=== PATIENT | female | born 1925 | race Caucasian/White ===

== ENCOUNTER 2016-12-30 14:13 | Inpatient (IN) | payer OTHER ==
[2016-12-30 14:46] LABS: BILIRUBIN,URINE Negative (NEGATIVE); KETONES,URINE Negative (NEGATIVE); LEUKOCYTE ESTERASE ,URINE Trace (NEGATIVE); NITRITE,URINE Negative (NEGATIVE); PROTEIN,URINE Negative (NEGATIVE); URINE, BLOOD Trace-intact (NEGATIVE)
[2016-12-30 14:55] LABS: BASOPHILS % (AUTO) 0.4 % (0.0-3.0); EOSINOPHILS % (AUTO) 0.4 % (0.0-7.0); HEMATOCRIT 36.5 % (37.0-47.0); HEMOGLOBIN 12.1 g/dl (12.0-16.0); IMMATURE GRANULOCYTE % (AUTO) 0.4 % (0.0-5.0); LYMPHOCYTES # (AUTO) 1.2 K/uL (0.60-3.4); LYMPHOCYTES % (AUTO) 14.6 (10.0-50.0); MEAN CORPUSCULAR HEMOGLOBIN 31.5 pg (27.0-31.0); MEAN CORPUSCULAR HGB CONC 33.2 (31.8-35.4); MEAN CORPUSCULAR VOLUME 95.1 fl (81.0-99.0); MONOCYTES # (AUTO) 0.6 K/uL (0.4-2.0); MONOCYTES % (AUTO) 7.3 (0-10); NEUTROPHILS # (AUTO) 6.5 K/ul (2.0-6.9); NEUTROPHILS % (AUTO) 76.9; PLATELET COUNT 179 10^3/uL (140-440); RED BLOOD COUNT 3.84 10^6/ul (4.20-5.40); WHITE BLOOD COUNT 8.49 K/ul (4.6-10.2)
[2016-12-30 14:55] LABS: ADD URINE MICROSCOPIC YES
[2016-12-30 14:56] LABS: BACTERIA,URINE 1+ (NOT PRESENT)
--- NOTE | 2016-12-30 15:04 | CT ---
EXAM: CT scan of the lumbar spine without contrast HISTORY: Back pain TECHNIQUE: Imaging of the lumbar spine was performed without contrast. Sagittal and coronal recons tructions and axial images were provided for interpretation. Comparison MRI of the lumbar spine dated 06/18/2013. FINDINGS: There is persistent curvature of the lumbar spine to the right centered at the L3 level m easuring approximately 28 degrees. No definite acute compression fractures are seen. The sacrum appe ars intact. Five lumbar-type vertebral bodies are seen. Segmental analysis: T12-L1: The central canal appears patent. There is mild narrowing of the neural foramina bilateral ly. L1-L2: The central canal appears adequately patent. There is lumbar spondylosis resulting in mild foraminal stenosis. L2-L3: There is lumbar spondylosis and facet arthropathy resulting in mild narrowing of the central canal. There is mild left foraminal stenosis secondary to lumbar spondylosis and facet arthropathy . The right neural foramen appears adequately patent. L3-L4: There is lumbar spondylosis and mild facet arthropathy resulting in mild narrowing of the ce ntral canal. The thecal sac measures 8.7 mm AP. There is mild to moderate left foraminal stenosis and mild narrowing of the right neural foramen. L4-L5: The central canal and lateral recesses appear adequately patent. There is lumbar spondylosi s and facet arthropathy resulting in moderate right and mild left foraminal stenosis. L5-S1: The central canal and lateral recesses appear patent. There is loss of disc height and face t arthropathy resulting in moderate bilateral foraminal stenosis. IMPRESSION: No acute fractures are seen within the lumbar spine. Persistent dextroscoliosis of the lumbar spine centered at the L3 level. There is no severe central canal stenosis. There is multilevel foraminal stenosis seen throughout the lumbar spine as described above secondary to facet arthropathy and lumbar spondylosis.
--- NOTE | 2016-12-30 15:10 | CT ---
Exam: CT examination of the abdomen pelvis without intravenous contrast administration. Comparison: 04/17/2015. Reason for exam: Back pain. FINDINGS: No pleural effusion, or focal consolidation in the partially imaged lung bases. There is mild basilar atelectasis. Within the limitations of a noncontrasted exam, the liver, spleen, gallbladder, and pancreas are derrick ssly unremarkable. The adrenal glands are mildly nodular. There is a small hiatal hernia. No hydronephrosis, hydroureter, or nephrolithiasis. The entirety of the right ureteral course is no t able to be seen secondary to metallic artifact from the right hip arthroplasty. There is no focal small bowel dilatation or transition point. The appendix is unremarkable. No intr a-abdominal free air. No inflammatory changes are seen within the partially imaged pelvic fat. Dive rticular disease is seen without obvious diverticulitis, although evaluation is limited by streak ar tifact. Degenerative disease is seen in the lumbosacral spine with dextroscoliosis and degenerative change. No obvious osteoblastic or osteolytic lesions. Impression: 1. Nodular adrenal glands. Recommend follow-up evaluation with MRI or CT adrenal gland protocol. 2. Diverticulosis without diverticulitis. 3. Right hip arthroplasty causing streak artifact throughout the pelvis. 4. Degenerative disease. Image interpretation faxed at [id number] hours on 12/30/2016.
[2016-12-30 15:13] LABS: ALBUMIN/GLOBULIN RATIO 1.18; ANION GAP 14.4; BILIRUBIN,TOTAL 0.52 mg/dL (0.00-1.20); BUN/CREATININE RATIO 30.76; CALCIUM 10.3 mg/dL (8.2-10.2); CREATININE 1.56 mg/dL (0.60-1.30); POTASSIUM 5.4 mmol/L (3.5-5.10); TOTAL PROTEIN 7.4 g/dL (5.8-8.1)
[2016-12-30] MEDS ORDERED: NORCO 5-325 PO STA (15:18)
--- NOTE | 2016-12-30 15:18 | ED.PDOC ---
General ED Provider: Dr. JES LERNER-ER Chief Complaint: Back Pain Stated Complaint: my back hurts to move--no fever or chills Time Seen by Physician: 14:15 Mode of Arrival: Wheelchair Information Source: Patient, Family Exam Limitations: No limitations Primary Care Provider: KARYNA IBRAHIM Nursing and Triage Documentation Reviewed and Agree: Yes Musculoskeletal Complaint Exam - Back Pain Complaint/Exam Mechanism of Injury: Reports: No known trauma Onset/Duration: several days Symptoms Are: Still present Timing: Intermittent Episodes Lasting: Days Initial Severity: Mild Current Severity: Mild Location: Reports: Discrete (lumbar spine) Character: Reports: Dull, Aching, Stiffness Aggravating: Reports: Movements, Lifting, Bending, Walking Alleviating: Reports: None Associated Signs and Symptoms: Denies: Swelling, Redness, Bruising, Fever, Weakness, Numbness, Tingling, Abdominal pain, Flank pain, Bladder incontinence, Bowel incontinence, Weight loss, Pain with weight bearing TAD Risk Factors: Reports: Hypertension AAA Risk Factors: Reports: None Cauda Equina Risk Factors: Reports: None Epidural Abcess Risk Factors: Reports: None Related Surgical History: Reports: None Focal Tenderness: Yes Paraspinal Muscle Tenderness: Yes Paraspinal Muscle Spasm: No Scoliosis: No Lordosis: No Kyphosis: No SLR Test: Right Negative, Left Negative Hip Motion Testing Pain: Right Negative, Left Negative Focal Weakness: Present: None Focal Sensory Loss: Present: None Gait: Present: Abnormal Differential Diagnoses: Arthritis, Fracture, Herniated Disk, Strain, Sprain Review of Systems - Review Of Systems Constitutional: Reports: No symptoms Eyes: Reports: No symptoms Ears, Nose, Mouth, Throat: Reports: No symptoms Respiratory: Reports: No symptoms Cardiac: Reports: No symptoms GI: Reports: No symptoms : Reports: No symptoms Musculoskeletal: Reports: Back pain Skin: Reports: No symptoms Neurological: Reports: No symptoms Endocrine: Reports: No symptoms Hematologic/Lymphatic: Reports: No symptoms All Other Systems: Reviewed and Negative Past Medical History - Past Medical History Endocrine: Reports: None, Dyslipidemia (simvastatin) Cardiovascular: Reports: None, Hypertension (lisinopril) Respiratory: Reports: None Hematological: Reports: None Gastrointestinal: Reports: GERD Genitourinary: Reports: None Neuro/Psych: Reports: Anxiety, Depression, Other (antivert) Musculoskeletal: Reports: None Cancer: Reports: None Last Menstrual Period: n/a Other Pertinent Past Medical History: arthritis left knee injections, zanaflex , actonel - Surgical History General Surgical History: Reports: Orthopedic (right hip, ) - Family History Family History: Reports: Unknown - Social History Smoking Status: Never smoker Hx Substance Use: No Alcohol Screening: None Physical Exam - Physical Exam Appearance: Well-appearing, No pain distress, Well-nourished Eyes: CHELI, EOMI, Conjunctiva clear ENT: Ears normal, Nose normal, Oropharynx normal Neck: Supple Respiratory: Airway patent, Breath sounds clear, Breath sounds equal, Respirations nonlabored Cardiovascular: RRR, Pulses normal, No rub, No murmur GI/: Soft, Nontender, No masses, Bowel sounds normal Musculoskeletal: Limited ROM Skin: Warm, Dry, Normal color Neurological: Sensation intact, Motor intact, Reflexes intact, Cranial nerves intact, Alert, Oriented Psychiatric: Affect appropriate, Mood appropriate Interpretation - Radiology Interpretation Radiology Interpretation By: Radiologist Radiology Results: Positive Exam Interpreted: CT Scan Re-Evaluation - Re-Evaluation Time of Re-Evaluation: 17:25 Status: Unchanged Vital Signs Stable: Yes Pain Level: 0 Appearance: NAD Lungs: Clear Skin: Warm and Dry Neuro: Alert and Oriented X3 CV: RRR Physician Notification - Case Discussed Physician Notified: dr ibrahim Time of Notification: 17:25 Critical Care Note - Critical Care Note Total Time (mins): 0 Course - Course Hematology/Chemistry: 12/31/16 04:50 12/31/16 13:50 Orders, Labs, Meds: Lab Review 12/30/16 12/30/16 14:30 14:45 WBC 8.49 RBC 3.84 L Hgb 12.1 Hct 36.5 L MCV 95.1 MCH 31.5 H MCHC 33.2 RDW Coeff of Burak 12.4 Plt Count 179 Immature Gran % (Auto) 0.4 Neut % (Auto) 76.9 Lymph % (Auto) 14.6 [place] % (Auto) 7.3 Eos % (Auto) 0.4 Baso % (Auto) 0.4 Immature Gran # (Auto) 0.0 Neut # 6.5 Lymph # 1.2 [place] # 0.6 Eos # 0.0 Baso # 0.0 Sodium 138 Potassium 5.4 H Chloride 104 Carbon Dioxide 25 Anion Gap 14.4 BUN 48 H Creatinine 1.56 H Estimated GFR (MDRD) 31.00 BUN/Creatinine Ratio 30.76 Glucose 93 Calcium 10.3 H Total Bilirubin 0.52 AST 15 ALT 14 Alkaline Phosphatase 63 Total Protein 7.4 Albumin 4.0 Globulin 3.4 Albumin/Globulin Ratio 1.18 Amylase 176 H Lipase 80 H Urine Color Yellow Urine Clarity Clear Urine pH 7.0 Ur Specific [place] 1.015 Urine Protein Negative Urine Glucose (UA) Negative Urine Ketones Negative Urine Blood Trace-intact Urine Nitrite Negative Urine Bilirubin Negative Urine Urobilinogen 0.2 Ur Leukocyte Esterase Trace Urine Microscopic RBC 2-5 Urine Microscopic WBC 5-10 Ur Squamous Epith Cells 5-10 Urine Bacteria 1+ Orders Category Date Time Status ADMIT PATIENT INPATIENT .TO [facility] [place] (MONITORED BED) ADMISSION 12/30/16 17: 26 Active ACTIVITY .BR with BRP CARE 12/30/16 17:26 Completed INTAKE & OUTPUT Q8HR CARE 12/30/16 17:26 Completed TELEMETRY MONITORING TELE CARE 12/30/16 17:27 Active VITAL SIGNS Q4HR CARE 12/30/16 17:26 Completed REGULAR DIET DIETARY 12/30/16 Dinner Ordered AMYLASE Stat LAB 12/30/16 14:45 Completed CBC W/ AUTO DIFF DAILY@0600 LAB 12/31/16 04:50 Completed CBC W/ AUTO DIFF DAILY@0600 LAB 01/01/17 06:00 Ordered CBC W/ AUTO DIFF DAILY@0600 LAB 01/02/17 06:00 Ordered CBC W/ AUTO DIFF DAILY@0600 LAB 01/03/17 06:00 Ordered CBC W/ AUTO DIFF DAILY@0600 LAB 01/04/17 06:00 Ordered CBC W/ AUTO DIFF DAILY@0600 LAB 01/05/17 06:00 Ordered CBC W/ AUTO DIFF DAILY@0600 LAB 01/06/17 06:00 Ordered CBC W/ AUTO DIFF DAILY@0600 LAB 01/07/17 06:00 Ordered CBC W/ AUTO DIFF DAILY@0600 LAB 01/08/17 06:00 Ordered CBC W/ AUTO DIFF DAILY@0600 LAB 01/09/17 06:00 Ordered CBC W/ AUTO DIFF DAILY@0600 LAB 01/10/17 06:00 Ordered CBC W/ AUTO DIFF DAILY@0600 LAB 01/11/17 06:00 Ordered CBC W/ AUTO DIFF DAILY@0600 LAB 01/12/17 06:00 Ordered CBC W/ AUTO DIFF DAILY@0600 LAB 01/13/17 06:00 Ordered CBC W/ AUTO DIFF DAILY@0600 LAB 01/14/17 06:00 Ordered CBC W/ AUTO DIFF DAILY@0600 LAB 01/15/17 06:00 Ordered CBC W/ AUTO DIFF DAILY@0600 LAB 01/16/17 06:00 Ordered CBC W/ AUTO DIFF DAILY@0600 LAB 01/17/17 06:00 Ordered CBC W/ AUTO DIFF DAILY@0600 LAB 01/18/17 06:00 Ordered CBC W/ AUTO DIFF DAILY@0600 LAB 01/19/17 06:00 Ordered CBC W/ AUTO DIFF Stat LAB 12/30/16 14:45 Completed COMPREHENSIVE METABOLIC PANEL DAILY@0600 LAB 12/31/16 04:50 Completed COMPREHENSIVE METABOLIC PANEL DAILY@0600 LAB 01/01/17 06:00 Ordered COMPREHENSIVE METABOLIC PANEL DAILY@0600 LAB 01/02/17 06:00 Ordered COMPREHENSIVE METABOLIC PANEL DAILY@0600 LAB 01/03/17 06:00 Ordered COMPREHENSIVE METABOLIC PANEL DAILY@0600 LAB 01/04/17 06:00 Ordered COMPREHENSIVE METABOLIC PANEL DAILY@0600 LAB 01/05/17 06:00 Ordered COMPREHENSIVE METABOLIC PANEL DAILY@0600 LAB 01/06/17 06:00 Ordered COMPREHENSIVE METABOLIC PANEL DAILY@0600 LAB 01/07/17 06:00 Ordered COMPREHENSIVE METABOLIC PANEL DAILY@0600 LAB 01/08/17 06:00 Ordered COMPREHENSIVE METABOLIC PANEL DAILY@0600 LAB 01/09/17 06:00 Ordered COMPREHENSIVE METABOLIC PANEL DAILY@0600 LAB 01/10/17 06:00 Ordered COMPREHENSIVE METABOLIC PANEL DAILY@0600 LAB 01/11/17 06:00 Ordered COMPREHENSIVE METABOLIC PANEL DAILY@0600 LAB 01/12/17 06:00 Ordered COMPREHENSIVE METABOLIC PANEL DAILY@0600 LAB 01/13/17 06:00 Ordered COMPREHENSIVE METABOLIC PANEL DAILY@0600 LAB 01/14/17 06:00 Ordered COMPREHENSIVE METABOLIC PANEL DAILY@0600 LAB 01/15/17 06:00 Ordered COMPREHENSIVE METABOLIC PANEL DAILY@0600 LAB 01/16/17 06:00 Ordered COMPREHENSIVE METABOLIC PANEL DAILY@0600 LAB 01/17/17 06:00 Ordered COMPREHENSIVE METABOLIC PANEL DAILY@0600 LAB 01/18/17 06:00 Ordered COMPREHENSIVE METABOLIC PANEL DAILY@0600 LAB 01/19/17 06:00 Ordered COMPREHENSIVE METABOLIC PANEL Stat LAB 12/30/16 14:45 Completed LIPASE Stat LAB 12/30/16 14:45 Completed URINALYSIS C & S IF INDICATED Stat LAB 12/30/16 14:30 Completed URINE CULTURE Stat LAB 12/30/16 14:30 Results Ceftriaxone Sodium [Rocephin] 1 gm MEDS 12/30/16 17:30 Discontinued 0.9 % Sodium Chloride [Sodium Chloride] 50 ml IV DAILY Dexamethasone 4 mg/ml Inj [Decadron 4 mg/ml Sdv] MEDS 12/30/16 17:30 Active 4 mg IVP Q8HR Enoxaparin Sodium [Lovenox] MEDS 12/31/16 09:00 Active 30 mg SUBCUT DAILY Hydrocodone Bit/Acetaminophen [[place] 5-325] MEDS 12/30/16 15:18 Discontinued 1 tab PO ONCE STA Hydrocodone Bit/Acetaminophen [[place] 7.5-325] MEDS 12/30/16 17:29 Active 1 tab PO Q4HR PRN Lactase [Lactaid] MEDS 12/30/16 21:00 Discontinued 3,000 unit PO BID Morphine Sulfate [Morphine 2 mg/ml Syringe] MEDS 12/30/16 16:16 Discontinued 2 mg IM ONCE STA Sodium Chloride 0.9% [Sodium Chloride] 1,000 ml MEDS 12/30/16 17:30 Active IV 75 mls/hr RESUSCITATION STATUS Routine OTHERS 12/30/16 17:[address] ABDOMEN/PELVIS WO CONTRAST Stat RADS 12/30/16 14:[address] LUMBAR SPINE W/O CONTRAST Stat RADS 12/30/16 14:31 Completed PT CONSULT Routine THERAPIES 12/30/16 Ordered PT INPATIENT EVALUATION Routine THERAPIES 12/30/16 Ordered Medications Generic Name Dose Route Start Last Admin Trade Name Freq PRN Reason Stop Dose Admin Acetaminophen/Hydrocodone Bitart 1 tab 12/30/16 17:29 12/31/16 09:28 [place] 7.5-325 PO 1 tab Q4HR PRN Administration MODERATE PAIN Calcium/Vitamin D 1 each 12/31/16 09:00 12/31/16 09:28 Calcium 500 + Vit D 200 Mg Tablet PO 1 each DAILY MILADYS Administration Dexamethasone Sodium Phosphate 4 mg 12/30/16 17:30 12/31/16 13:56 Decadron 4 Mg/Ml Sdv IVP 4 mg Q8HR MILADYS Administration Enoxaparin Sodium 30 mg 12/31/16 09:00 12/31/16 09:28 Lovenox SUBCUT 30 mg DAILY MILADYS Administration Sodium Chloride 1,000 mls @ 75 mls/hr 12/30/16 17:30 12/31/16 09:39 Sodium Chloride IV 75 mls/hr .[id number] MILADYS Administration Ceftriaxone Sodium 1 gm/ 50 mls @ 75 mls/hr 12/31/16 21:00 Sodium Chloride IV BEDTIME MILADYS Lisinopril 20 mg 12/31/16 09:00 12/31/16 09:27 Zestril PO 20 mg DAILY MILADYS Administration Multivitamins 1 cap 12/31/16 09:00 12/31/16 09:27 Multivitamin PO 1 cap DAILY MILADYS Administration Non-Formulary Medication 3,000 unit 12/31/16 09:00 12/31/16 09:40 Lactase [Lactaid] PO Not Given BID MILADYS Discontinued Medications Generic Name Dose Route Start Last Admin Trade Name Freq PRN Reason Stop Dose Admin Acetaminophen/Hydrocodone Bitart 1 tab 12/30/16 15:18 12/30/16 15:30 Broad [place] 5-325 PO 12/30/16 15:19 1 tab ONCE STA Administration Ceftriaxone Sodium 1 gm/ 50 mls @ 75 mls/hr 12/30/16 17:30 12/30/16 21:27 Sodium Chloride IV Not Given DAILY MILADYS Ketorolac Tromethamine 30 mg 12/31/16 09:18 12/31/16 09:53 Toradol IVP 12/31/16 09:19 30 mg ONCE STA Administration Morphine Sulfate 2 mg 12/30/16 16:16 12/30/16 16:41 Morphine 2 Mg/Ml Syringe IM 12/30/16 16:17 2 mg ONCE STA Administration Non-Formulary Medication 3,000 unit 12/30/16 21:00 12/30/16 21:26 Lactase [Lactaid] PO Not Given BID MILADYS Sodium Polystyrene Sulfonate 25 gm 12/31/16 06:30 12/31/16 06:38 Kayexalate Susp PO 12/31/16 06:31 25 gm ONCE STA Administration Sodium Polystyrene Sulfonate 25 gm 12/31/16 12:00 12/31/16 14:44 Kayexalate Susp PO 12/31/16 12:01 25 gm ONCE ONE Administration Vital Signs: Temp Pulse Resp BP Pulse Ox 12/30/16 17:04 118/70 12/30/16 14:14 98.3 F 56 L 18 152/68 H 96 Departure - Departure Time of Disposition: 15:19 Disposition: ADMITTED INPATIENT Discharge Problem: Backache, Cystitis, CKD (chronic kidney disease) Condition: Good Pt referred to PMD for follow-up: Yes Allergies/Adverse Reactions: Allergies No Known Allergies Allergy (Verified 12/30/16 14:22) Home Medications: Ambulatory Orders Calcium Carbonate/Vitamin D3 [Calcium 600 + Vit D 400 Tablet] 1 each PO DAILY Lisinopril 20 mg PO DAILY 06/15/13 Multivits-Min/Iron/FA/Lutein [Centrum Silver Women Tablet] 1 tab PO EVERY OTHER DAY 03/20/15 Lactase [Lactaid] 3,000 unit PO BID 12/30/16 Disposition Discussed With: Patient, Family
[2016-12-30] MEDS ORDERED: MORPHINE 2 MG/ML SYRINGE IM STA (16:16)
[2016-12-30] MEDS ORDERED: ROCEPHIN 1 GM in SODIUM CHLORIDE 50 ML IV SCH (17:30)
[2016-12-30] MEDS ORDERED: ROCEPHIN ONE (19:23)
[2016-12-30] MEDS: DECADRON 4 MG/ML SDV IVP SCH ×2 (20:00→21:27)
[2016-12-30] MEDS: SODIUM CHLORIDE 1,000 ML IV SCH (20:00)
[2016-12-30] MEDS ORDERED: SODIUM CHLORIDE 50 ML IV ONE (20:00)
[2016-12-30 20:18] VITALS: BMI 25.1
[2016-12-30] MEDS ORDERED: LACTASE 3000 UNIT PO SCH ×22 (21:00)
[2016-12-31] MEDS: DECADRON 4 MG/ML SDV IVP SCH ×3 (05:14→21:06)
[2016-12-31 05:53] LABS: BASOPHILS % (AUTO) 0.2 % (0.0-3.0); HEMATOCRIT 34.1 % (37.0-47.0); IMMATURE GRANULOCYTE % (AUTO) 0.4 % (0.0-5.0); LYMPHOCYTES # (AUTO) 0.5 K/uL (0.60-3.4); LYMPHOCYTES % (AUTO) 9.9 (10.0-50.0); MEAN CORPUSCULAR HEMOGLOBIN 31.1 pg (27.0-31.0); MEAN CORPUSCULAR HGB CONC 32.3 (31.8-35.4); MEAN CORPUSCULAR VOLUME 96.3 fl (81.0-99.0); MONOCYTES # (AUTO) 0.1 K/uL (0.4-2.0); MONOCYTES % (AUTO) 1.7 (0-10); NEUTROPHILS # (AUTO) 4.2 K/ul (2.0-6.9); NEUTROPHILS % (AUTO) 87.8; PLATELET COUNT 177 10^3/uL (140-440); RED BLOOD COUNT 3.54 10^6/ul (4.20-5.40); WHITE BLOOD COUNT 4.76 K/ul (4.6-10.2)
[2016-12-31 06:24] LABS: ALBUMIN 3.4 g/dL (3.4-5.0); ALBUMIN/GLOBULIN RATIO 1.1; ANION GAP 14.2; BILIRUBIN,TOTAL 0.42 mg/dL (0.00-1.20); BUN/CREATININE RATIO 29.92; CALCIUM 9.4 mg/dL (8.2-10.2); CREATININE 1.37 mg/dL (0.60-1.30); TOTAL PROTEIN 6.5 g/dL (5.8-8.1)
[2016-12-31 06:26] LABS: POTASSIUM 6.2 mmol/L (3.5-5.10)
[2016-12-31] MEDS ORDERED: KAYEXALATE SUSP PO STA (06:30)
[2016-12-31] MEDS ORDERED: NON-FORMULARY MEDICATION (Lisinopril [Lisinopril] 20 MG) PO SCH ×22 (09:00)
[2016-12-31] MEDS ORDERED: IRON PO SCH (09:00)
[2016-12-31] MEDS ORDERED: MULTIVITS MIN PO SCH (09:00)
[2016-12-31] MEDS ORDERED: [UNRECOGNIZED DRUG - OTHER] PO SCH (09:00)
[2016-12-31] MEDS ORDERED: LUTEIN PO SCH (09:00)
[2016-12-31] MEDS ORDERED: TORADOL IVP STA (09:18)
[2016-12-31] MEDS: ZESTRIL PO SCH (09:27)
[2016-12-31] MEDS: MULTIVITAMIN PO SCH (09:27)
[2016-12-31] MEDS: NORCO 7.5-325 PO PRN ×2 (09:28→20:56)
[2016-12-31] MEDS: LOVENOX SUBCUT SCH (09:28)
[2016-12-31] MEDS: CALCIUM 500 + VIT D 200 MG TABLET PO SCH (09:28)
[2016-12-31] MEDS: SODIUM CHLORIDE 1,000 ML IV SCH ×2 (09:39→23:38)
[2016-12-31] MEDS: LACTASE 3000 UNIT PO SCH ×44 (09:40→21:07)
--- NOTE | 2016-12-31 10:53 | PCM.PROG ---
Attending Provider: ATTENDING PROVIDER: Dr. KARYNA SMITH - Seen by Dr. Mckeon DATE OF SERVICE: 12/31/16 SUBJECTIVE: This 89 year old WHITE/ F was hospitalized 12/30/16. The patient is admitted with back pain. She has had the back pain for 2 weeks but worse the last two days. No nausea, no vomiting. The patient also has hyperkalemia. The patient did not look in distress. REVIEW OF SYSTEMS: CONSTITUTIONAL: No fever, no chills. ENDOCRINE: No weight loss or weight gain. HEENT: No sinus drainage, no sore throat. CVS: No angina symptoms. No CHF symptoms. No palpitations. No atypical chest pain for CAD. No shortness of breath. RESPIRATORY: No cough, no hemoptysis. GI: No melena. No abdominal pain. No nausea, no vomiting. : No hematuria. No polyuria. SKIN: No rash. No wounds. MUSCULOSKELETAL: No pain. CLINICAL TRANSFORMATION SPECIALIST: No blackout, no dizziness. No headache. No double vision. PSYCHIATRIC: Not anxious; no depression. No suicidal thoughts. No homicidal thoughts. PHYSICAL EXAMINATION: GENERAL: Lying in bed in no distress. VITAL SIGNS: Temperature 96.8 F, Pulse 52, Respiratory Rate 16, BP 128/70, Pulse Ox 93% HEENT: Normocephalic, atraumatic. Mucosa is dry, pallor positive. NECK: No JVP, no carotid bruit. No lymphadenopathy. CARDIAC: S1, S2, no S3. No murmur, gallop or regurgitation. LUNGS: Clear to auscultation. ABDOMEN: Soft, non-tender. Bowel sounds active. No rigidity or guarding. The patient has paraspinal tenderness lower back. EXTREMITIES: No clubbing, cyanosis or edema. NEUROLOGIC: Awake, alert and oriented x3. LYMPHATIC: No palpable lymph nodes SKIN: Not dry. Intact. MUSCULOSKELETAL: No joint swelling. LAB REVIEW: 12/31/16 04:50 12/31/16 04:50 12/31/16 04:50: WBC 4.76, RBC 3.54 L, Hgb 11.0 L, Hct 34.1 L, MCV 96.3, MCH 31.1 H, MCHC 32.3, RDW Coeff of Burak 12.1, Plt Count 177, Immature Gran % (Auto) 0.4, Neut % (Auto) 87.8, Lymph % (Auto) 9.9 L, [place] % (Auto) 1.7, Eos % (Auto) 0.0, Baso % (Auto) 0.2, Immature Gran # (Auto) 0.0, Neut # 4.2, Lymph # 0.5 L, [place] # 0.1 L, Eos # 0.0, Baso # 0.0, Sodium 137, Potassium 6.2 H*, Chloride 106 , Carbon Dioxide 23, Anion Gap 14.2, BUN 41 H, Creatinine 1.37 H, Estimated GFR (MDRD) 36.00, BUN/Creatinine Ratio 29.92, Glucose 160 H D, Calcium 9.4, Total Bilirubin 0.42, AST 13 L, ALT 12, Alkaline Phosphatase 59, Total Protein 6.5, Albumin 3.4, Globulin 3.1, Albumin/Globulin Ratio 1.10 ASSESSMENT: 1. Intractable lower back pain, no history of injury. 2. Hyperkalemia. 3. Hypertension. 4. Dyslipidemia. 5. Osteoarthritis. 6. Depression. PLAN: 1. Out of bed to chair 2. Kayexylate this a.m. 3. Lortab 7.5 mg for pain 4. Toradol 30 mg IV push, one dose Plan and coordination of the patient's care discussed in the presence of Staple Cutter and nurse. CONDITION: Stable SCRIBED BY: ADRIANA LOO Finance Controller scribed while in presence of service performed by Dr. Mckeon on 12/31/16 ([id number])
[2016-12-31] MEDS ORDERED: KAYEXALATE SUSP PO ONE (12:00)
[2016-12-31] MEDS: ROCEPHIN 1 GM in SODIUM CHLORIDE 50 ML IV SCH (20:57)
[2017-01-01] MEDS: DECADRON 4 MG/ML SDV IVP SCH ×3 (05:05→20:25)
[2017-01-01] MEDS: NORCO 7.5-325 PO PRN ×2 (05:08→19:54)
[2017-01-01 05:16] LABS: BASOPHILS % (AUTO) 0.1 % (0.0-3.0); HEMATOCRIT 29.6 % (37.0-47.0); HEMOGLOBIN 9.7 g/dl (12.0-16.0); IMMATURE GRANULOCYTE % (AUTO) 0.5 % (0.0-5.0); LYMPHOCYTES # (AUTO) 0.5 K/uL (0.60-3.4); LYMPHOCYTES % (AUTO) 5.4 (10.0-50.0); MEAN CORPUSCULAR HEMOGLOBIN 31.1 pg (27.0-31.0); MEAN CORPUSCULAR HGB CONC 32.8 (31.8-35.4); MEAN CORPUSCULAR VOLUME 94.9 fl (81.0-99.0); MONOCYTES # (AUTO) 0.3 K/uL (0.4-2.0); MONOCYTES % (AUTO) 2.9 (0-10); NEUTROPHILS # (AUTO) 8.8 K/ul (2.0-6.9); NEUTROPHILS % (AUTO) 91.1; PLATELET COUNT 157 10^3/uL (140-440); RED BLOOD COUNT 3.12 10^6/ul (4.20-5.40); WHITE BLOOD COUNT 9.68 K/ul (4.6-10.2)
[2017-01-01 05:37] LABS: ALBUMIN/GLOBULIN RATIO 1.11; ANION GAP 14.7; BILIRUBIN,TOTAL 0.28 mg/dL (0.00-1.20); BUN/CREATININE RATIO 32.39; CALCIUM 8.1 mg/dL (8.2-10.2); CREATININE 1.42 mg/dL (0.60-1.30); POTASSIUM 4.7 mmol/L (3.5-5.10); TOTAL PROTEIN 5.7 g/dL (5.8-8.1)
--- NOTE | 2017-01-01 08:59 | PCM.PROG ---
Attending Provider: ATTENDING PROVIDER: Dr. KARYNA LUDWIG - THE PATIENT IS SEEN BY DR. MCKEON DATE OF SERVICE: 01/01/17 SUBJECTIVE: This 89 year old WHITE/ F was hospitalized 12/30/16. The patient was asked to see the patient by Dr. Ludwig. The patient states back pain is better. Potassium is normal. The patient had had a loose bowel movement every since Kayexylate was given. The patient's daughter is in the room and complains that the patient has had difficulty swallowing liquids and solids on and off for a long time and is worried something is wrong and wants her to be checked out. REVIEW OF SYSTEMS: CONSTITUTIONAL: No fever, no chills. ENDOCRINE: No weight loss or weight gain. HEENT: No sinus drainage, no sore throat. CVS: No angina symptoms. No CHF symptoms. No palpitations. No atypical chest pain for CAD. No shortness of breath. RESPIRATORY: No cough, no hemoptysis. GI: No melena. No abdominal pain. No nausea, no vomiting. : No hematuria. No polyuria. SKIN: No rash. No wounds. MUSCULOSKELETAL: No pain. STRATEGIES ANALYST: No blackout, no dizziness. No headache. No double vision. PSYCHIATRIC: Not anxious; no depression. No suicidal thoughts. No homicidal thoughts. PHYSICAL EXAMINATION: GENERAL: Cachetic appearing female, lying in bed in no distress. VITAL SIGNS: Temperature 96.9 F, Pulse 57, Respiratory Rate 22, BP 109/57, Pulse Ox 100% HEENT: Normocephalic, atraumatic. Mucosa is dry, pallor positive. NECK: No JVD, no carotid bruit. No lymphadenopathy. No palpable mass. No thyromegaly. CARDIAC: S1, S2, no S3. No murmur, gallop or regurgitation. LUNGS: Clear to auscultation. ABDOMEN: Soft, non-tender. Bowel sounds active. No rigidity, guarding or CVA tenderness. EXTREMITIES: No clubbing, cyanosis or edema. NEUROLOGIC: Awake, alert and oriented x3. LYMPHATIC: No palpable lymph nodes SKIN: Not dry. Intact. MUSCULOSKELETAL: No joint swelling. LAB REVIEW: 01/01/17 05:16 01/01/17 05:16 01/01/17 05:16: WBC 9.68, RBC 3.12 L, Hgb 9.7 L, Hct 29.6 L, MCV 94.9, MCH 31.1 H, MCHC 32.8, RDW Coeff of Burak 12.3, Plt Count 157, Immature Gran % (Auto) 0.5, Neut % (Auto) 91.1, Lymph % (Auto) 5.4 L, [place] % (Auto) 2.9, Eos % (Auto) 0.0, Baso % (Auto) 0.1, Immature Gran # (Auto) 0.1, Neut # 8.8 H, Lymph # 0.5 L, [place] # 0.3 L, Eos # 0.0, Baso # 0.0, Sodium 140, Potassium 4.7, Chloride 108 H, Carbon Dioxide 22 L, Anion Gap 14.7, BUN 46 H, Creatinine 1.42 H, Estimated GFR (MDRD) 35.00, BUN/Creatinine Ratio 32.39, Glucose 131 H, Calcium 8.1 L, Total Bilirubin 0.28, AST 15, ALT 13, Alkaline Phosphatase 55, Total Protein 5.7 L, Albumin 3.0 L, Globulin 2.7, Albumin/Globulin Ratio 1.11 12/31/16 13:50: Potassium 5.1 ASSESSMENT: 1. Dysphagia. 2. Intractable lower back pain, no history of injury. 3. Hyperkalemia. 4. Hypertension. 5. Dyslipidemia. 6. Osteoarthritis. 7. Depression. PLAN: 1. Barium swallow 2. Decrease IV fluids to 50 mL 3. Out of bed to chair. Plan and coordination of the patient's care discussed in the presence of Dumpman and nurse. CONDITION: Stable SCRIBED BY: ADRIANA LOO Electrical Instrument Maker scribed while in presence of service performed by Dr. Mckeon on 01/01/17 ([id number])
[2017-01-01] MEDS: MULTIVITAMIN PO SCH (09:57)
[2017-01-01] MEDS: ZESTRIL PO SCH (09:57)
[2017-01-01] MEDS: CALCIUM 500 + VIT D 200 MG TABLET PO SCH (09:58)
[2017-01-01] MEDS: LOVENOX SUBCUT SCH (09:58)
[2017-01-01] MEDS: LACTASE 3000 UNIT PO SCH ×44 (10:00→20:27)
[2017-01-01] MEDS: SODIUM CHLORIDE 1,000 ML IV SCH ×2 (12:07→16:15)
--- NOTE | 2017-01-01 12:57 | PN ---
DATE OF SERVICE: 12/30/16 ADMIT NOTE REASON FOR HOSPITALIZATION/ HISTORY OF PRESENT ILLNESS: Severe back pain and inability to walk with no history of duration 5-6 days. The patient had an appointment to see me in the morning but she couldn't wait so the family brought her to the emergency room where she was examined by the ER attending and was diagnosed to have severe DJD of the lumbar spine also had abnormal creatinine and BUN with possibility of kidney infection. Again the patient has no evidence or no symptoms of kidney infection at present time. The patient. REVIEW OF SYSTEMS: CONSTITUTIONAL: No night sweats. No fatigue, malaise, lethargy. No fever or chills. HEENT: Eyes: No visual changes. No eye pain. No eye discharge. ENT: No runny nose. No epistaxis. No sinus pain. No sore throat. No odynophagia. No congestion. RESPIRATORY: No cough, no congestion. No hemoptysis. CARDIOVASCULAR: No angina symptoms. No CHF symptoms. No atypical chest pain for CAD. No palpitations. No shortness of breath. GASTROINTESTINAL: No abdominal pain. No nausea or vomiting. No diarrhea or constipation. No hematemesis. No hematochezia. GENITOURINARY: No urgency. No frequency. No dysuria. No hematuria. No obstructive symptoms. No discharge. No pain. No significant abnormal bleeding. MUSCULOSKELETAL: No musculoskeletal pain; no joint swelling. NEUROLOGICAL: No headache. No neck pain. No syncope. No seizures. No dizziness. PSYCHIATRIC: Not anxious. No depression. No suicidal thoughts. No homicidal thoughts. SKIN: No rash. No lesions. No wounds. ENDOCRINE: No unexplained weight loss. No weight gain. HEMATOLOGIC/LYMPHATIC: No anemia. No purpura. No petechiae. No prolonged or excessive bleeding. No palpable lymph nodes. PHYSICAL EXAMINATION: GENERAL: The patient is oriented to time, place and person. VITAL SIGNS: Temperature 98.4, pulse 80m, respiratory rate 15 and blood pressure 138/78. HEENT: Head normocephalic, atraumatic. Eyes: Extraocular muscles are intact. Pupils are equal, round and reactive to light and accommodation. Ears: No lesions. Nose appeared normal. Throat: No exudate or erythema. NECK: Supple. No JVD, no carotid bruit. No lymphadenopathy or thyromegaly. LUNGS: Decreased breath sounds but clear to auscultation. Percussion note normal. Chest symmetrical. HEART: S1, S2, no S3. No murmurs. No cyanosis or clubbing. No ascites. Pulses: Dorsalis pedis and posterior tibial pulses +1 to +2 both sides. ABDOMEN: Soft. Nontender. Bowel sounds active. No CVA tenderness. No mass felt. EXTREMITIES: Trace edema. Full range of motion of all extremities, equal. NEUROLOGIC: No focal deficit. Cranial nerves II through XII are grossly intact. No headache, no double vision or headache. SKIN: Not dry. Intact. Turgor - normal. LYMPHATIC: No palpable lymph nodes/no lymphedema. MUSCULOSKELETAL: Normal joints with no swelling. Muscle tone is normal. ASSESSMENT: 1. Muscle spasm with severe DJD of the spine and no evidence of any radiculopathy by symptoms. 2. Dehydration with abnormal kidney function Note the patient in the past year ago was followed by Dr. Mary and used to get shots in the back but she has stopped going. PLAN: 1. Give IV fluids 2. Urine cultures 3. Morphine for the pain along with steroids 4. Anti-inflammatory with [place] 5. The patient is going to be hospitalized. CONDITION: Stable. TIME SPENT: More than 30 minutes. Plan and coordination of the patient's care discussed in the presence of nurse. JAYSHREE
[2017-01-01] MEDS: ROCEPHIN 1 GM in SODIUM CHLORIDE 50 ML IV SCH (20:25)
[2017-01-02 04:39] LABS: HEMATOCRIT 29.2 % (37.0-47.0); HEMOGLOBIN 9.7 g/dl (12.0-16.0); IMMATURE GRANULOCYTE % (AUTO) 0.7 % (0.0-5.0); LYMPHOCYTES # (AUTO) 0.6 K/uL (0.60-3.4); LYMPHOCYTES % (AUTO) 6.5 (10.0-50.0); MEAN CORPUSCULAR HEMOGLOBIN 31.9 pg (27.0-31.0); MEAN CORPUSCULAR HGB CONC 33.2 (31.8-35.4); MEAN CORPUSCULAR VOLUME 96.1 fl (81.0-99.0); MONOCYTES # (AUTO) 0.2 K/uL (0.4-2.0); MONOCYTES % (AUTO) 2.4 (0-10); NEUTROPHILS # (AUTO) 8.3 K/ul (2.0-6.9); NEUTROPHILS % (AUTO) 90.4; PLATELET COUNT 151 10^3/uL (140-440); RED BLOOD COUNT 3.04 10^6/ul (4.20-5.40); WHITE BLOOD COUNT 9.22 K/ul (4.6-10.2)
[2017-01-02] MEDS: SODIUM CHLORIDE 1,000 ML IV SCH (04:52)
[2017-01-02 04:57] LABS: ALBUMIN 3.1 g/dL (3.4-5.0); ALBUMIN/GLOBULIN RATIO 1.07; ANION GAP 14.3; BILIRUBIN,TOTAL 0.23 mg/dL (0.00-1.20); BUN/CREATININE RATIO 31.57; CREATININE 1.52 mg/dL (0.60-1.30); POTASSIUM 4.3 mmol/L (3.5-5.10)
[2017-01-02] MEDS: DECADRON 4 MG/ML SDV IVP SCH ×3 (05:50→20:10)
[2017-01-02] MEDS ORDERED: SODIUM CHLORIDE 1,000 ML IV SCH (08:15)
[2017-01-02 08:30] LABS: AMYLASE 107 U/L (25-115); LIPASE 64 U/L (8-78)
--- NOTE | 2017-01-02 09:49 | CT ---
EXAM: CT ABDOMEN AND PELVIS HISTORY: Abdominal pain TECHNIQUE: CT abdomen and pelvis without intravenous contrast. Images were reconstructed using 5 m m section thickness. Reformations were prepared. COMPARISON: 12/30/2016 FINDINGS: Diagnostic limitations exist without including contrast enhanced images. Previous total right hip a rthroplasty leads artifact limiting regional image quality. No focal hepatic or splenic lesions iden tified. Gallbladder grossly unremarkable. No pancreatic pathology is obvious. Stable nodularity t o the adrenal glands. There is nonspecific bilateral perinephric fat stranding. No hydronephrosis o r evidence of ureteral obstruction. Moderate atherosclerotic disease of the aorta without aneurysma l caliber. No gastric distension. The appendix has no evidence of inflammation. Moderate distal colon diverti culosis. Uterus is present. Urinary bladder is poorly seen. No ascites. Abdominal wall is intact. The bones appear demineralized. There is moderately severe degenerative disc and facet disease of the spine with scoliosis. Lung bases reveal a tiny bilateral pleural effu sions and chronic interstitial changes. No pneumoperitoneum. IMPRESSION: 1. No obvious acute intra-abdominal or pelvic abnormality. 2. Atherosclerotic disease. 3. Diverticulosis without diverticulitis. 4. Tiny bilateral pleural effusions. 5. Significant degenerative changes of the spine.
[2017-01-02] MEDS: MULTIVITAMIN PO SCH (09:58)
[2017-01-02] MEDS: NORCO 7.5-325 PO PRN (09:58)
[2017-01-02] MEDS: ZESTRIL PO SCH (09:59)
[2017-01-02] MEDS: PROTONIX PO SCH (09:59)
[2017-01-02] MEDS: CALCIUM 500 + VIT D 200 MG TABLET PO SCH (09:59)
[2017-01-02] MEDS: LOVENOX SUBCUT SCH (09:59)
[2017-01-02] MEDS: LACTASE 3000 UNIT PO SCH ×44 (10:00→21:27)
--- NOTE | 2017-01-02 10:14 | DI ---
EXAM: Single contrast esophagram. History: Difficulty swallowing. Technique: Patient was given oral barium and multiple spot films of the esophagus and gastroesophage al junction were obtained in various projections. Findings: Diffuse esophageal spasm was observed. There is a moderate-sized pulsion diverticulum wi thin the mid to distal esophagus. Gastroesophageal junction is patent. No hiatal hernia. Impression: 1. Diffuse esophageal spasm. 2. 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
--- NOTE | 2017-01-02 10:54 | PCM.PROG ---
Attending Provider: ATTENDING PROVIDER: Dr. KARYNA SMITH - seen by Dr. Mckeon DATE OF SERVICE: 01/02/17 SUBJECTIVE: This 89 year old WHITE/ F was hospitalized 12/30/16. Dr. Mckeon is seeing this patient at the request of Dr. Smith. The patient's abdominal pain is in the epigastric area. She is having bowel movements. Potassium is normal. The patient's back is hurting today. Again, the daughter is in the room. She is scheduled for a barium swallow today. REVIEW OF SYSTEMS: CONSTITUTIONAL: No fever, no chills. ENDOCRINE: No weight loss or weight gain. HEENT: No sinus drainage, no sore throat. CVS: No angina symptoms. No CHF symptoms. No palpitations. No atypical chest pain for CAD. No shortness of breath. RESPIRATORY: No cough, no hemoptysis. GI: Epigastric pain/tenderness. No melena. No nausea, no vomiting. : No hematuria. No polyuria. SKIN: No rash. No wounds. MUSCULOSKELETAL: Back is hurting. 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 No headache. No double vision. PSYCHIATRIC: Not anxious; no depression. No suicidal thoughts. No homicidal thoughts. PHYSICAL EXAMINATION: GENERAL: Lying in bed in no distress. VITAL SIGNS: Temperature 96.8 F, Pulse 53, Respiratory Rate 18, BP 129/65, Pulse Ox 98% HEENT: Normocephalic, atraumatic. Mucosa is dry, pallor positive. NECK: No JVP, no carotid bruit. No lymphadenopathy. CARDIAC: S1, S2, no S3. No murmur, gallop or regurgitation. LUNGS: Clear to auscultation. ABDOMEN: Soft with epigastric tenderness. Bowel sounds active. No rigidity or guarding. Back pain. EXTREMITIES: No clubbing, cyanosis or edema. NEUROLOGIC: Awake, alert and oriented x3. LYMPHATIC: No palpable lymph nodes SKIN: Not dry. Intact. MUSCULOSKELETAL: No joint swelling. LAB REVIEW: 01/02/17 04:37 01/02/17 04:37 01/02/17 04:37: WBC 9.22, RBC 3.04 L, Hgb 9.7 L, Hct 29.2 L, MCV 96.1, MCH 31.9 H, MCHC 33.2, RDW Coeff of Burak 12.8, Plt Count 151, Immature Gran % (Auto) 0.7, Neut % (Auto) 90.4, Lymph % (Auto) 6.5 L, [place] % (Auto) 2.4, Eos % (Auto) 0.0, Baso % (Auto) 0.0, Immature Gran # (Auto) 0.1, Neut # 8.3 H, Lymph # 0.6, [place] # 0.2 L, Eos # 0.0, Baso # 0.0, Sodium 139, Potassium 4.3, Chloride 110 H, Carbon Dioxide 19 L, Anion Gap 14.3, BUN 48 H, Creatinine 1.52 H, Estimated GFR (MDRD) 32.00, BUN/Creatinine Ratio 31.57, Glucose 116 H, Calcium 8.0 L, Total Bilirubin 0.23, AST 19, ALT 18, Alkaline Phosphatase 50 L, Total Protein 6.0, Albumin 3.1 L, Globulin 2.9, Albumin/Globulin Ratio 1.07 ASSESSMENT: 1. Abdominal pain. 2. Dysphagia. 3. Intractable lower back pain, no history of injury. 4. Hyperkalemia. 5. Hypertension. 6. Dyslipidemia. 7. Osteoarthritis. 8. Depression. PLAN: 1. CT scan of abdomen and pelvis without 2. Protonix 40 mg daily p.o 3. Decrease IV fluids to 30 mL/hr 4. Continue Rocephin 5. Pending barium swallow Plan and coordination of the patient's care discussed in the presence of Healthcare Receptionist and nurse. CONDITION: Stable SCRIBED BY: ADRIANA LOO Administrative Office Clerk scribed while in presence of service performed by Dr. Mckeon on 01/02/17 (0801)
--- NOTE | 2017-01-02 16:12 | RS.PTINEVL ---
Subjective - Patient information Date of Evaluation: 01/01/17 Date of Arrival on Unit: 12/30/16 Usual Living Arrangement: family stays with her at night Living Arrangement Comments: family stays at night and checks on her frequently during day. Family does cooking and housecleaning. Pt does own laundry Home Environment: House, Level/No stairs, Ramp Medical History: Arthritis Medical History Comments:: Degenerative Joint Disease lumbar spine, DENNIS 2004 Subjective Information/ Patient Comments:: Patient states her head feels full. States she does not have much back pain while lying in bed. Reports using a rolling walker at home. States her family helps her at home. Reports left heel pain. Does not report back pain until asked about pain while ambulating in [place]. Patient reports increased pain with walking. - Level of function Prior to this admission, the patient could do the following:: Independent Selfcare, Independent ADL's, Independent Ambulation Current Level of Function: Partially Dependent Current Equipment Used at Home: walker, hearing aides Interventions - Objective Patient Orientation: Person, Place, Time, Situation Current Interventions: IV's Range of Motion - ROM Right Upper Extremity AROM: WFL's Left Upper Extremity AROM: WFL's Right Lower Extremity AROM: WFL's Left Lower Extremity AROM: WFL's Muscle Strength - Muscle Strength Comments:: Muscle strength at least 4/5. Sensation - Sensation Right Lower Extremity Sensation: Intact/Normal Left Lower Extremity Sensation: Intact/Normal Balance - Sitting Balance and Reactions Static Sitting Balance: Good Dynamic Sitting Balance: Good - Standing Balance and Reactions Static Standing Balance: Fair (+) Dynamic Standing Balance: Fair (+) Functional Mobility - Bed Mobility Supine to Sit: Supervision Sit to Supine: Supervision Comments:: Demonstrates no facial grimace and offers no reports of pain during mobility. - Transfers Sit to Stand: Supervision, 1 person assist Stand to Sit: Supervision, 1 person assist Stand Pivot Transfers: Supervision, 1 person assist Comments:: Patient transfered to [facility] with Supvn to CGA. Patient reaches back for arm rest of [facility] without VC's. - Safety Awareness Safety Awareness: Fair Ambulation - Ambulation Weight Bearing Status: FWB Assistive Device Used: Rolling Walker Assistance needed with Ambulation: Supervision, CGA, 1 person assist Ambulation Comments: Patient demonstrates decreased stance phase on the left LE. She reports this is because of left heel pain. Patient does not report back pain until asked, then states her pain increases with walking. Factors Affecting Ambulation: Pain, Limited Endurance Treatment time - Time with patient Total treatment time: 19 (mins) Assessment - Assessment Further Therapy Indicated?: No Comments: Patient demonstrates to be at a high level of function and only reports back pain while ambulating. She demonstrates proper use of assistive device. She uses a rolling walker at home. Plan Duration of Treatment: One Time Treatment Anticipated Discharge Destination: Home
[2017-01-02] MEDS: ROCEPHIN 1 GM in SODIUM CHLORIDE 50 ML IV SCH (21:27)
[2017-01-03 04:29] LABS: HEMATOCRIT 29.7 % (37.0-47.0); HEMOGLOBIN 9.7 g/dl (12.0-16.0); IMMATURE GRANULOCYTE % (AUTO) 1.2 % (0.0-5.0); LYMPHOCYTES # (AUTO) 0.5 K/uL (0.60-3.4); LYMPHOCYTES % (AUTO) 6.9 (10.0-50.0); MEAN CORPUSCULAR HEMOGLOBIN 31.2 pg (27.0-31.0); MEAN CORPUSCULAR HGB CONC 32.7 (31.8-35.4); MEAN CORPUSCULAR VOLUME 95.5 fl (81.0-99.0); MONOCYTES # (AUTO) 0.3 K/uL (0.4-2.0); MONOCYTES % (AUTO) 3.7 (0-10); NEUTROPHILS # (AUTO) 6.9 K/ul (2.0-6.9); NEUTROPHILS % (AUTO) 88.2; PLATELET COUNT 158 10^3/uL (140-440); RED BLOOD COUNT 3.11 10^6/ul (4.20-5.40); WHITE BLOOD COUNT 7.82 K/ul (4.6-10.2)
[2017-01-03 04:49] LABS: ALBUMIN 2.9 g/dL (3.4-5.0); ALBUMIN/GLOBULIN RATIO 1.12; ANION GAP 11.6; BILIRUBIN,TOTAL 0.24 mg/dL (0.00-1.20); BUN/CREATININE RATIO 27.39; CALCIUM 7.9 mg/dL (8.2-10.2); CREATININE 1.46 mg/dL (0.60-1.30); POTASSIUM 4.6 mmol/L (3.5-5.10); TOTAL PROTEIN 5.5 g/dL (5.8-8.1)
[2017-01-03 05:14] VITALS: BP 135/67; TEMP 96.8
[2017-01-03] MEDS: PROTONIX PO SCH (05:38)
[2017-01-03] MEDS: DECADRON 4 MG/ML SDV IVP SCH (05:38)
[2017-01-03] MEDS: ZESTRIL PO SCH (09:10)
[2017-01-03] MEDS: CALCIUM 500 + VIT D 200 MG TABLET PO SCH (09:10)
[2017-01-03] MEDS: NORCO 7.5-325 PO PRN (09:10)
[2017-01-03] MEDS: LOVENOX SUBCUT SCH (09:10)
[2017-01-03] MEDS: LACTASE 3000 UNIT PO SCH ×22 (09:10)
[2017-01-03] MEDS: MULTIVITAMIN PO SCH (09:10)
--- NOTE | 2017-01-03 11:08 | PCM.PROG ---
Attending Provider: ATTENDING PROVIDER: Dr. KARYNA LUDWIG - SEEN BY DR. MCKEON DATE OF SERVICE: 01/03/17 SUBJECTIVE: This 89 year old WHITE/ F was hospitalized 12/30/16. The patient is seen by Dr. Mckeon at the request of Dr. Ludwig. The patient is up sitting in the chair. Back pain is better. no other complaints. REVIEW OF SYSTEMS: CONSTITUTIONAL: No fever, no chills. ENDOCRINE: No weight loss or weight gain. HEENT: No sinus drainage, no sore throat. CVS: No angina symptoms. No CHF symptoms. No palpitations. No atypical chest pain for CAD. No shortness of breath. RESPIRATORY: No cough, no hemoptysis. GI: No melena. No abdominal pain. No nausea, no vomiting. : No hematuria. No polyuria. SKIN: No rash. No wounds. MUSCULOSKELETAL: No pain. 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 No headache. No double vision. PSYCHIATRIC: Not anxious; no depression. No suicidal thoughts. No homicidal thoughts. PHYSICAL EXAMINATION: GENERAL: Lying in bed in no distress. VITAL SIGNS: Temperature 96.8 F, Pulse 56, Respiratory Rate 18, BP 135/67, Pulse Ox 97% HEENT: Normocephalic, atraumatic. Mucosa is dry, pallor positive. NECK: No JVP, no carotid bruit. No lymphadenopathy. CARDIAC: S1, S2, no S3. No murmur, gallop or regurgitation. LUNGS: Clear to auscultation. ABDOMEN: Soft, non-tender. Bowel sounds active. No rigidity, guarding or CVA tenderness. EXTREMITIES: No clubbing, cyanosis or edema. NEUROLOGIC: Awake, alert and oriented x3. LYMPHATIC: No palpable lymph nodes SKIN: Not dry. Intact. MUSCULOSKELETAL: No joint swelling. LAB REVIEW: 01/03/17 04:28 01/03/17 04:28 01/03/17 04:28: WBC 7.82, RBC 3.11 L, Hgb 9.7 L, Hct 29.7 L, MCV 95.5, MCH 31.2 H, MCHC 32.7, RDW Coeff of Burak 12.8, Plt Count 158, Immature Gran % (Auto) 1.2, Neut % (Auto) 88.2, Lymph % (Auto) 6.9 L, [place] % (Auto) 3.7, Eos % (Auto) 0.0, Baso % (Auto) 0.0, Immature Gran # (Auto) 0.1, Neut # 6.9, Lymph # 0.5 L, [place] # 0.3 L, Eos # 0.0, Baso # 0.0, Sodium 138, Potassium 4.6, Chloride 112 H, Carbon Dioxide 19 L, Anion Gap 11.6, BUN 40 H, Creatinine 1.46 H, Estimated GFR (MDRD) 34.00, BUN/Creatinine Ratio 27.39, Glucose 118 H, Calcium 7.9 L, Total Bilirubin 0.24, AST 39 H, ALT 43, Alkaline Phosphatase 46 L, Total Protein 5.5 L , Albumin 2.9 L, Globulin 2.6, Albumin/Globulin Ratio 1.12 01/02/17 04:35: Amylase 107 D, Lipase 64 ASSESSMENT: 1. Abdominal pain. resolved 2. Dysphagia. Barium swallow study showed esophageal diverticulum. 3. UTI, Klebsiella Pneumoniae sensitive to Rocephin 3. Intractable lower back pain, no history of injury. 4. Hyperkalemia. 5. Hypertension. 6. Dyslipidemia. 7. Osteoarthritis. 8. Depression. PLAN: 1. Cipro 250 mg times 5 days 2. The patient will be referred to a GI specialist as outpatient. 3. Will see the patient in the office in one week. 4. Prednisone 5 mg twice a day for five days. 5. Increase hydration. Plan and coordination of the patient's care discussed in the presence of Supervisor Beehive Kiln and nurse. EDUCATION: The patient's daughter is in the room and discussed results of Barium Swallow with she and the patient. Advised referral to GI specialist. Both voiced understanding and are in agreement. CONDITION: Stable. SCRIBED BY: ADRIANA LOO, Riverboat Captain scribed while in presence of service performed by Dr. Mckeon on 01/03/17 (0802)
--- NOTE | 2017-01-03 15:41 | CM.DICTOOL ---
ADMISSION: 12/30/16 17:35 DISCHARGE: January 03, 2017 DATE OF SERVICE: 01/03/17 FINAL DIAGNOSIS Urinary Tract Infection, Klebsiella Pneumoniae Back pain Hyperkalemia, resolved Hypertension CKD Esophageal Spasm per Barium Swallow Right hip arthroplasty Arthritis LAST VITALS Temp Pulse Resp BP Pulse Ox 96.8 F L 56 L 18 135/67 97 01/03/17 05:13 01/03/17 05:13 01/03/17 07:34 01/03/17 05:13 01/03/17 05:13 ACTIVE HOME MEDICATIONS Calcium/Vitamin D (Calcium 500 + Vit D 200 Mg Tablet) 1 each PO DAILY [facility] Last Admin: 01/03/17 09:10 Dose: 1 each Lisinopril (Zestril) 20 mg PO DAILY [facility] Last Admin: 01/03/17 09:10 Dose: 20 mg Multivitamins (Multivitamin) 1 cap PO DAILY [facility] Last Admin: 01/03/17 09:10 Dose: 1 cap Non-Formulary Medication (Lactase [Lactaid]) 3,000 unit PO BID [facility] Last Admin: 01/03/17 09:10 Dose: Not Given ALLERGIES No Known Allergies Allergy (Verified 12/30/16 14:22) NEW PRESCRIPTIONS: Cipro 250 mg BID for 5 days Prednisone 5 mg BID for 5 days. Take with food Protonix 40 mg take 1 daily All prescriptions called to [facility] per request of family SMOKING: Not Applicable DISEASE SPECIFIC EDUCATION: Urinary Tract Infection Prescriptions Use of Steroids, short term Appointments LAB REVIEW: 01/03/17 04:28 01/03/17 04:28 01/03/17 04:28: WBC 7.82, RBC 3.11 L, Hgb 9.7 L, Hct 29.7 L, MCV 95.5, MCH 31.2 H, MCHC 32.7, RDW Coeff of Burak 12.8, Plt Count 158, Immature Gran % (Auto) 1.2, Neut % (Auto) 88.2, Lymph % (Auto) 6.9 L, [place] % (Auto) 3.7, Eos % (Auto) 0.0, Baso % (Auto) 0.0, Immature Gran # (Auto) 0.1, Neut # 6.9, Lymph # 0.5 L, [place] # 0.3 L, Eos # 0.0, Baso # 0.0, Sodium 138, Potassium 4.6, Chloride 112 H, Carbon Dioxide 19 L, Anion Gap 11.6, BUN 40 H, Creatinine 1.46 H, Estimated GFR (MDRD) 34.00, BUN/Creatinine Ratio 27.39, Glucose 118 H, Calcium 7.9 L, Total Bilirubin 0.24, AST 39 H, ALT 43, Alkaline Phosphatase 46 L, Total Protein 5.5 L , Albumin 2.9 L, Globulin 2.6, Albumin/Globulin Ratio 1.12 PLAN: Discharge home Diet: Regular diet as tolerated. Eat at least 1 serving of yogurt daily Drink a full glass of water with antibiotic Activity: Gradually resume as tolerated. Use walker for added stability An appointment has been arranged with Dr. Ludwig on January 10 at 2:15 pm An appointment has been arranged with Dr. Joy on March 12 at 1:15 pm Ms. Anthony is alert and oriented x 3. She is independent with feeding, but requires assistance of one staff member for dressing, bathing and transfers. She is ambulatory with you of a rolling walker and is able to transfer with assistance of one staff member to the chair. Meals are tolerated without abdominal pain or nausea. Meal intakes are noted at 30-75%. Skin is in good condition and free of decubitus ulcers, rashes or irritation. Kashmir Mckeon MD
--- NOTE | 2017-01-10 14:02 | DS ---
DATE OF SERVICE: 01/03/17 FINAL DIAGNOSIS: 1. URINARY TRACT INFECTION, KLEBSIELLA PNEUMONIAE 2. BACK PAIN, INTRACTABLE WHICH IS BETTER 3. HYPERKALEMIA RESOLVED 4. HYPERTENSION 5. CHRONIC KIDNEY DISEASE 6. ESOPHAGEAL SPASM PER BARIUM SWALLOW 7. RIGHT HIP ARTHROPLASTY 8. ARTHRITIS V/S AT TIME OF DISCHARGE: BP 135/67, respiratory rate 18, heart rate 56, temperature 96.8, saturation 97 DISCHARGE INSTRUCTIONS: Followup appointment: Dr. Ludwig January 10 at 2:15 p.m.; Dr. Joy on 03/12/17 at 1:15 p.m. MEDICATIONS AT DISCHARGE: 1. Calcium with Vitamin D 2. Zestril 3. Multivitamin 4. Lactaid NEW PRESCRIPTIONS: 1. Cipro 250 mg b.i.d. times 5 days 2. Prednisone 5 mg b.i.d. for 5 days, take with food 3. Protonix 40 mg take one daily 4. All prescriptions called to [facility] per request of family DIET INSTRUCTIONS: Regular diet as tolerated. Eat at least one serving of yogurt daily. Drink a full glass of water with antibiotic. ACTIVITY: Gradually resume as tolerated. Use walker for added stability. SMOKING: N/A DISEASE SPECIFIC EDUCATION: Urinary tract infection, lower back pain, hyperkalemia, chronic kidney disease, prescriptions, use of steroids, shortterm, appointments all discussed in detail. HOSPITAL COURSE: This is a 89-year-old female admitted through the Emergency Room with intactable lower back pain. The next day her potassium went up to 6.1. The patient was given Kayexylate. The patient was initially admitted to Dr. Ludwig, who saw the patient in the emergency room and suggested that I followup and was seen by myself until the patient was discharged. During the hospital stay, the patient was given Toradol and steroids, which did help her back. The patient's daughter was in the hospital and complained that the patient has a problem with swallowing sometimes for which a barium swallow was done. This showed esophageal spasm and diverticulum for which outpatient endoscopy was planned and requested GI consultation. Potassium became normal. BUN and creatinine were steady. Hemoglobin was 9.6 probably from the chronic anemia from CKD. At that time, as the patient was tolerating fluids, no back pain she was discharged home. She has outpatient followup with GI consultation for esophageal spasm and dysmotility. TIME SPENT: More than 50 minutes today. [facility]
== END 2017-01-03 11:05 | disposition home or self-care (01) | DRG 690 ==
LOC: ED 14:13 → MEDSURG A 17:35
PROVIDERS: ADMIT Internal Medicine; ATTEND Internal Medicine
DX: N30.90 Cystitis, unspecified without hematuria (principal); M54.5 Low back pain; N18.9 Chronic kidney disease, unspecified; I10 Essential (primary) hypertension; E87.5 Hyperkalemia; D50.0 Iron deficiency anemia secondary to blood loss (chronic); B96.1 Klebsiella pneumoniae [K. pneumoniae] as the cause of diseases classified elsewhere; K22.4 Dyskinesia of esophagus; K22.5 Diverticulum of esophagus, acquired; R10.13 Epigastric pain; M19.90 Unspecified osteoarthritis, unspecified site; M47.9 Spondylosis, unspecified; Z96.641 Presence of right artificial hip joint; Z79.899 Other long term (current) drug therapy
CPT/HCPCS: 36415; 80053; 81001; 82150; 83690; 84132; 85025; 87086; 87186; 93005; 93010; 96372; 99284

== ENCOUNTER 2017-01-10 06:57 | Emergency (ER) | payer OTHER ==
[2017-01-10 07:03] VITALS: BP 171/85; TEMP 98.2; BMI 26.0
[2017-01-10 07:31] LABS: ADD URINE MICROSCOPIC YES; BILIRUBIN,URINE Negative (NEGATIVE); KETONES,URINE Negative (NEGATIVE); LEUKOCYTE ESTERASE ,URINE 1+ (NEGATIVE); NITRITE,URINE Negative (NEGATIVE); PH,URINE 7.5 (5-9); PROTEIN,URINE Trace (NEGATIVE); URINE, BLOOD Trace-intact (NEGATIVE)
--- NOTE | 2017-01-10 07:35 | ED.PDOC ---
General ED Provider: Dr. WILMAR BELL JR Chief Complaint: Back Pain Stated Complaint: patient was admitted recently for back pain and was released 01/03/17. patient states she was still hurting when she left the hospital. states it hurts to move or even sit. patient has an appointment with her drDorita this afternoon but could not wait. patient was also treated for uti with cipro and steroid. [ End ]. 4 weeks. 98.2 63 16 98% 171/85 06/11. ice packs and heating pads, salon pas pain patches. [ End ]. right hip replacement,. [ End ]. htn gerd depr anx arth. patient was recently treated for a uti. [ End ]. protonix centrm lisinopril lactaid ca. Patietn states difficult to get up or to toilet dueto back pain tender at L2 level and across back at CVA bilaterally poorly reproducible but back otherwise less tender, states pain when left hospital not on pain medication note discussed with dr Mckeon Time Seen by Physician: 07:34 Mode of Arrival: Walk-In Information Source: Patient Exam Limitations: No limitations Primary Care Provider: KARYNA SMITH Nursing and Triage Documentation Reviewed and Agree: No Review of Systems - Review Of Systems Constitutional: Reports: No symptoms Eyes: Reports: No symptoms Ears, Nose, Mouth, Throat: Reports: No symptoms Respiratory: Reports: No symptoms Cardiac: Reports: No symptoms GI: Reports: Abdominal pain (lower abdomen) : Reports: Frequency, Pain (in back ) Musculoskeletal: Reports: Back pain (note tenderness and negative xrays) Skin: Reports: No symptoms Neurological: Reports: No symptoms Endocrine: Reports: No symptoms Hematologic/Lymphatic: Reports: No symptoms All Other Systems: Other Past Medical History - Past Medical History Endocrine: Reports: None, Dyslipidemia (simvastatin) Cardiovascular: Reports: None, Hypertension (lisinopril) Respiratory: Reports: None Hematological: Reports: None Gastrointestinal: Reports: GERD Genitourinary: Reports: None Neuro/Psych: Reports: Anxiety, Depression, Other (antivert) Musculoskeletal: Reports: None Cancer: Reports: None Last Menstrual Period: n/a Other Pertinent Past Medical History: arthritis left knee injections, zanaflex , actonel - Surgical History General Surgical History: Reports: Orthopedic (right hip, ) - Family History Family History: Reports: Unknown - Social History Smoking Status: Never smoker Hx Substance Use: No Alcohol Screening: None Physical Exam - Physical Exam Appearance: Well-appearing Pain Distress: Moderate Eyes: CHELI, EOMI, Conjunctiva clear ENT: Ears normal, Nose normal, Oropharynx normal Neck: Supple Respiratory: Airway patent, Breath sounds equal, Respirations nonlabored, Rhonchi Cardiovascular: RRR, Pulses normal, No rub, No murmur GI/: Soft, Tender (mid abdomen denies constipation note GI consult pending for esophageal ) Musculoskeletal: No edema, No calf tenderness, Limited ROM Skin: Warm, Dry Neurological: Sensation intact, Motor intact, Reflexes intact, Cranial nerves intact, Alert, Oriented Psychiatric: Affect appropriate, Mood appropriate Critical Care Note - Critical Care Note Total Time (mins): 0 Course - Course Orders, Labs, Meds: Lab Review 01/10/17 07:15 Urine Color Yellow Urine Clarity Clear Urine pH 7.5 Ur Specific [place] 1.015 Urine Protein Trace Urine Glucose (UA) Negative Urine Ketones Negative Urine Blood Trace-intact Urine Nitrite Negative Urine Bilirubin Negative Urine Urobilinogen 0.2 Ur Leukocyte Esterase 1+ Urine Microscopic RBC 0-2 Urine Microscopic WBC 2-5 Ur Squamous Epith Cells 0-2 Ur Renal Epithelial Cell 0-2 Urine Bacteria Trace Hyaline Casts 0-2 Orders Category Date Time Status UA [URINALYSIS C & S IF INDICATED] Stat LAB 01/10/17 07:15 Completed URINE CULTURE Stat LAB 01/10/17 07:36 Ordered Hydrocodone Bit/Acetaminophen [[place] 5-325] MEDS 01/10/17 07:51 Discontinued 1 tab PO ONCE STA Medications Discontinued Medications Generic Name Dose Route Start Last Admin Trade Name Dori PRN Reason Stop Dose Admin Acetaminophen/Hydrocodone Bitart 1 tab 01/10/17 07:51 01/10/17 08:00 [place] 5-325 PO 01/10/17 07:52 1 tab ONCE STA Administration Vital Signs: Temp Pulse Resp BP Pulse Ox 01/10/17 06:58 98.2 F 63 16 171/85 H 98 Departure - Departure Time of Disposition: 07:55 Disposition: HOME SELF-CARE Discharge Problem: Backache, Cystitis Instructions: Urinary Tract Infection in Women (ED), Chronic Back Pain (ED) Condition: Good Pt referred to PMD for follow-up: Yes Additional Instructions: continue increased fluids follow up with PMD and GI as scheduled discuss nonsteroidals for pain with PMD(none given) antibiotic for three days for white cells in urine antibiotic cannot be taken with calcium- take two hours before calcium and wait four hours after calcium to take antibiotic recheck urine in one week would take daily stool softener such as colace when on pain medications may use miralax, half a dose a day if no bowel movement Prescriptions: Hydrocodone Bit/Acetaminophen [[place] 5-325] 1 - 2 tab PO Q6HR PRN #12 tablet PRN Reason: pain Doxycycline Monohydrate [Monodox] 100 mg PO BID #7 capsule Allergies/Adverse Reactions: Allergies No Known Allergies Allergy (Verified 01/10/17 07:03) Home Medications: Ambulatory Orders Calcium Carbonate/Vitamin D3 [Calcium 600 + Vit D 400 Tablet] 1 each PO DAILY Lisinopril 20 mg PO DAILY 06/15/13 Multivits-Min/Iron/FA/Lutein [Centrum Silver Women Tablet] 1 tab PO EVERY OTHER DAY 03/20/15 Lactase [Lactaid] 3,000 unit PO BID 12/30/16 Pantoprazole Sodium [Protonix] 40 mg PO DAILY #30 tablet. 01/03/17 Doxycycline Monohydrate [Monodox] 100 mg PO BID #7 capsule 01/10/17 Hydrocodone Bit/Acetaminophen [[place] 5-325] 1 - 2 tab PO Q6HR PRN #12 tablet 07/19
[2017-01-10] MEDS ORDERED: NORCO 5-325 PO STA (07:51)
[2017-01-10 08:00] LABS: BACTERIA,URINE TRACE (NOT PRESENT)
== END 2017-01-10 09:45 | disposition home or self-care (01) ==
LOC: ED 06:57
DX: N30.90 Cystitis, unspecified without hematuria (principal); M54.5 Low back pain; Z79.899 Other long term (current) drug therapy
CPT/HCPCS: 81001; 87086; 99283

== ENCOUNTER 2017-01-16 19:32 | Emergency (ER) | payer OTHER ==
[2017-01-16 19:33] VITALS: BMI 26.0
[2017-01-16 19:42] VITALS: BP 183/78; TEMP 98
[2017-01-16] MEDS ORDERED: DECADRON 4 MG/ML SDV IM STA (19:48)
[2017-01-16] MEDS ORDERED: PERCOCET 7.5-325 PO STA (19:48)
[2017-01-16] MEDS ORDERED: CATAPRES PO STA (19:49)
[2017-01-16 20:06] LABS: BASOPHILS % (AUTO) 0.1 % (0.0-3.0); EOSINOPHILS % (AUTO) 0.3 % (0.0-7.0); HEMATOCRIT 39.9 % (37.0-47.0); HEMOGLOBIN 13.2 g/dl (12.0-16.0); IMMATURE GRANULOCYTE % (AUTO) 0.7 % (0.0-5.0); LYMPHOCYTES % (AUTO) 10.3 (10.0-50.0); MEAN CORPUSCULAR HEMOGLOBIN 31.2 pg (27.0-31.0); MEAN CORPUSCULAR HGB CONC 33.1 (31.8-35.4); MEAN CORPUSCULAR VOLUME 94.3 fl (81.0-99.0); MONOCYTES # (AUTO) 0.7 K/uL (0.4-2.0); MONOCYTES % (AUTO) 7.1 (0-10); NEUTROPHILS # (AUTO) 8.2 K/ul (2.0-6.9); NEUTROPHILS % (AUTO) 81.5; PLATELET COUNT 231 10^3/uL (140-440); RED BLOOD COUNT 4.23 10^6/ul (4.20-5.40); WHITE BLOOD COUNT 10.02 K/ul (4.6-10.2)
[2017-01-16 20:27] LABS: ALBUMIN 4.1 g/dL (3.4-5.0); ALBUMIN/GLOBULIN RATIO 1.17; ANION GAP 17.2; BILIRUBIN,TOTAL 0.5 mg/dL (0.00-1.20); BUN/CREATININE RATIO 26.38; CALCIUM 10.3 mg/dL (8.2-10.2); CREATININE 1.44 mg/dL (0.60-1.30); POTASSIUM 5.2 mmol/L (3.5-5.10); TOTAL PROTEIN 7.6 g/dL (5.8-8.1)
--- NOTE | 2017-01-16 20:41 | CT ---
EXAM: CT head without intravenous contrast 01/16/2017. Sagittal and coronal reformatted images obt ained HISTORY: Headache COMPARISON: 11/13/2007 FINDINGS: The midline is maintained. The ventricular volumes appear enlarged most compatible with generalized atrophy. Chronic microvascular ischemic changes No evidence of intracranial hemorrhage. There is mass effect at the level of foramen magnum and C1. Narrowing at C1 and foramen magnum caus es mass at the level of the brainstem. This appears similar to the prior examination. If further c haracterization if clinically indicated then follow-up MRI brain and/or cervical spine could be perf ormed. The calvarium is intact without fracture. IMPRESSION: 1. No acute intracranial process. 2. Generalized atrophy and chronic microvascular ischemic change. 3. Stable mass effect at the level of C1 and foramen magnum. This appears similar to the prior MRI . Further evaluation may be obtained as clinically indicated.
--- NOTE | 2017-01-16 20:45 | CT ---
EXAM: Noncontrast CT of the abdomen and pelvis HISTORY: Flank pain COMPARISON: 01/02/2017 TECHNIQUE: Noncontrast CT of the abdomen and pelvis FINDINGS: There are mild bilateral lower lobe ground-glass opacities which are nonspecific and suggestive of a telectasis.. Right lower lobe calcified granuloma is seen. The bilateral pleural effusions seen in the prior exam have resolved. Noncontrast technique limits evaluation of the abdominal viscera. The unenhanced liver, gallbladder, spleen, adrenals, kidneys and pancreas are unremarkable. No renal or proximal to mid ureteral calculi are identified. The distal ureters are obscured due to streak artifacts secondary to the right hip prosthesis. No hydronephrosis is seen. No abnormal small bowel dilation is seen. There are diverticuli of the third portion of the duodenu m. Diverticulosis seen without evidence of diverticulitis. There is moderate ascending and transve rse colonic stool. The appendix is not abnormally enlarged. There is calcified atherosclerotic plaque of the aorta and its branches. No free air or free fluid is seen. There is lumbar rotary dextroscoliosis with multilevel degenerative disc disease and facet arthropathy. There is unchanged remote compression deformity T12 vertebral body. IMPRESSION: No evidence of an acute intra-abdominal process. No evidence of urolithiasis with obscuration of the distal ureters due to streak artifact secondary to the right hip prosthesis. Moderate ascending and transverse colonic stool. Diverticulosis without evidence of diverticulitis. Atherosclerosis. Scoliosis and multilevel degenerative disc disease and facet arthropathy.
--- NOTE | 2017-01-16 20:51 | CT ---
Examination: CT lumbar spine without contrast 01/16/2017 Clinical information: Low back pain. Comparison: 12/30/2016. TECHNIQUE: Noncontrast helical imaging was performed through the lumbar spine. 2 mm sagittal, 2 mm coronal and 3 mm axial images are submitted for review. FINDINGS: There is no acute fracture or subluxation. The osseous structures are diffusely deminera lized. Chronic inferior T11, superior T12 and superior L5 vertebral body endplate compression fract ures were present previously. There is a chronic anterior and left lateral wedge deformity of L3. T here is a chronic inferior L1 endplate depression. There is a moderate lumbar dextroscoliosis center ed at L3. There is a left lateral translation of L1 on L2 and right lateral translation of L4 on L5 . There is a 2 mm retrolisthesis of L5 on S1. There is multilevel ventral spondylosis. Multilevel degenerative disc disease with vacuum disc phenomenon throughout the T12-L1 through L5-S1 levels. There is discogenic endplate irregularity on the right at T12-L1 and L1-L2, on the left at L2-L3, L3 -L4 and on the right at L4-L5. Diffuse endplate irregularity L5-S1. There is diffuse atherosclerot ic calcification of the abdominal aorta. There is dense contrast material within multiple descendin g and sigmoid colon diverticula. At the T11-T12 level, there is minor posterior cortical buckling of T11 and T12. There is a diffuse disc bulge. There is no significant central spinal canal stenosis. There is mild bilateral forami nal stenosis. At the T12-L1 level, there is a spondylotic disc bulge eccentric right. There is right greater than left hypertrophic facet arthropathy. There is no significant central spinal canal stenosis. There is right neural foraminal stenosis. At the L1-L2 level, there is a diffuse spondylotic disc bulge. There is minimal central spinal gladys l stenosis. There is left greater than right facet arthropathy. There is severe right greater than left foraminal stenosis. At the L2-L3 level, there is a spondylotic disc bulge eccentric left. There is mild central spinal canal stenosis and asymmetric left lateral recess stenosis. There is left greater than right facet hypertrophy. There is severe left and mild right foraminal stenosis. At the L3-L4 level, there is moderate central spinal canal stenosis. There is a spondylotic disc bu lge eccentric left. There is asymmetric left lateral recess stenosis. There is moderate left and m odest right hypertrophic facet arthropathy. There is severe left foraminal stenosis. At the L4-L5 level, there is a diffuse spondylotic disc bulge eccentric left. There is moderate obie ateral hypertrophic facet arthropathy. Minimal central spinal canal stenosis with right greater damaris n left lateral recess stenosis. There is moderate right greater than left foraminal stenosis. At the L5-S1 level, there is a diffuse spondylotic disc bulge eccentric right with far right lateral endplate osteophyte formation. There is no significant central spinal canal stenosis. Modest bila teral hypertrophic facet arthropathy. There is severe right and moderate left foraminal stenosis. Overall, no significant interval change when compared to 12/30/2016. Impression: 1. No acute fracture or subluxation. No significant change compared to 12/30/2016. 2. Chronic T11, T12, L1, L3 and L5 vertebral body compression deformities. 3. Moderate lumbar dextroscoliosis centered at L3. Trace retrolisthesis of L5 on S1. Minor right lateral translation of L4 on L5 and left lateral translation of L1 on L2. 4. Advanced multilevel degenerative disc disease. Multilevel hypertrophic facet arthropathy. 5. Minimal L1-L2, mild L2-L3, moderate L3-L4 and minimal L4-L5 central spinal canal stenosis. 6. Multilevel foraminal stenosis as noted level by level. 7. ASVD. 8. Colonic diverticulosis. 9. Osteopenia.
[2017-01-16 21:43] LABS: BILIRUBIN,URINE Negative (NEGATIVE); KETONES,URINE Negative (NEGATIVE); LEUKOCYTE ESTERASE ,URINE Negative (NEGATIVE); NITRITE,URINE Negative (NEGATIVE); PH,URINE 5.5 (5-9); PROTEIN,URINE Negative (NEGATIVE); URINE, BLOOD Trace-intact (NEGATIVE)
[2017-01-16 21:50] LABS: ADD URINE MICROSCOPIC YES
--- NOTE | 2017-01-16 22:33 | ED.PDOC ---
General ED Provider: Dr. JES LERNER-ER Chief Complaint: Back Pain Stated Complaint: my back hurts Time Seen by Physician: 19:40 Mode of Arrival: Walk-In Information Source: Patient Exam Limitations: No limitations Primary Care Provider: KARYNA IBRAHIM Nursing and Triage Documentation Reviewed and Agree: Yes Musculoskeletal Complaint Exam - Back Pain Complaint/Exam Mechanism of Injury: Reports: No known trauma Onset/Duration: several weeks Symptoms Are: Still present Timing: Intermittent Episodes Lasting: Weeks Initial Severity: Moderate Current Severity: Moderate Location: Reports: Discrete Character: Reports: Dull, Aching, Spasmodic Aggravating: Reports: Movements, Lifting, Bending, Walking Alleviating: Reports: None Associated Signs and Symptoms: Denies: Swelling, Redness, Bruising, Fever, Weakness, Numbness, Tingling, Abdominal pain, Flank pain, Bladder incontinence, Bowel incontinence, Weight loss, Pain with weight bearing Related History: Reports: Similar episode Cauda Equina Risk Factors: Reports: None Epidural Abcess Risk Factors: Reports: None Related Surgical History: Reports: None Focal Tenderness: No Paraspinal Muscle Tenderness: No Paraspinal Muscle Spasm: No Scoliosis: No Lordosis: No Kyphosis: No SLR Test: Right Negative, Left Negative Hip Motion Testing Pain: Right Negative, Left Negative Focal Weakness: Present: None Focal Sensory Loss: Present: None Gait: Present: Abnormal Differential Diagnoses: Fracture, Herniated Disk Review of Systems - Review Of Systems Constitutional: Reports: No symptoms Eyes: Reports: No symptoms Ears, Nose, Mouth, Throat: Reports: No symptoms Respiratory: Reports: No symptoms Cardiac: Reports: No symptoms GI: Reports: No symptoms : Reports: No symptoms Musculoskeletal: Reports: Back pain Skin: Reports: No symptoms Neurological: Reports: No symptoms Endocrine: Reports: No symptoms Hematologic/Lymphatic: Reports: No symptoms All Other Systems: Reviewed and Negative Past Medical History - Past Medical History Endocrine: Reports: None, Dyslipidemia (simvastatin) Cardiovascular: Reports: None, Hypertension (lisinopril) Respiratory: Reports: None Hematological: Reports: None Gastrointestinal: Reports: GERD Genitourinary: Reports: None Neuro/Psych: Reports: Anxiety, Depression, Other (antivert) Musculoskeletal: Reports: None Cancer: Reports: None Last Menstrual Period: unknown Other Pertinent Past Medical History: arthritis left knee injections, zanaflex , actonel - Surgical History General Surgical History: Reports: Orthopedic (right hip, ) - Family History Family History: Reports: Unknown - Social History Smoking Status: Never smoker Hx Substance Use: No Alcohol Screening: None Lives: With family - Immunizations Tetanus Shot up to Date: No Physical Exam - Physical Exam Appearance: Well-appearing, Well-nourished Pain Distress: Moderate Eyes: CHELI, EOMI, Conjunctiva clear ENT: Ears normal Neck: Supple Respiratory: Airway patent, Breath sounds clear, Breath sounds equal, Respirations nonlabored Cardiovascular: RRR, Pulses normal, No rub, No murmur GI/: Soft, Nontender, No masses, Bowel sounds normal, No Organomegaly Musculoskeletal: Limited ROM, Limited strength Skin: Warm Neurological: Sensation intact Psychiatric: Affect appropriate, Mood appropriate, Anxious Interpretation - Radiology Interpretation Radiology Interpretation By: Radiologist Radiology Results: Negative Exam Interpreted: CT Scan Physician Notification - Case Discussed Physician Notified: dr ibrahim Time of Notification: 22:32 Critical Care Note - Critical Care Note Total Time (mins): 0 Course - Course Hematology/Chemistry: 01/16/17 20:02 01/16/17 20:02 Orders, Labs, Meds: Lab Review 01/16/17 01/16/17 19:35 20:02 WBC 10.02 RBC 4.23 Hgb 13.2 Hct 39.9 MCV 94.3 MCH 31.2 H MCHC 33.1 RDW Coeff of Burak 13.2 Plt Count 231 Immature Gran % (Auto) 0.7 Neut % (Auto) 81.5 Lymph % (Auto) 10.3 [place] % (Auto) 7.1 Eos % (Auto) 0.3 Baso % (Auto) 0.1 Immature Gran # (Auto) 0.1 Neut # 8.2 H Lymph # 1.0 [place] # 0.7 Eos # 0.0 Baso # 0.0 Sodium 136 Potassium 5.2 H Chloride 102 Carbon Dioxide 22 L Anion Gap 17.2 BUN 38 H Creatinine 1.44 H Estimated GFR (MDRD) 34.00 BUN/Creatinine Ratio 26.38 Glucose 103 Calcium 10.3 H Total Bilirubin 0.50 AST 13 L ALT 18 Alkaline Phosphatase 91 Total Protein 7.6 Albumin 4.1 Globulin 3.5 Albumin/Globulin Ratio 1.17 Urine Color Yellow Urine Clarity Clear Urine pH 5.5 Ur Specific [place] 1.015 Urine Protein Negative Urine Glucose (UA) Negative Urine Ketones Negative Urine Blood Trace-intact Urine Nitrite Negative Urine Bilirubin Negative Urine Urobilinogen 0.2 Ur Leukocyte Esterase Negative Urine Microscopic RBC 0-2 Ur Squamous Epith Cells 0-2 Orders Category Date Time Status CBC W/ AUTO DIFF Stat LAB 01/16/17 20:02 Completed COMPREHENSIVE METABOLIC PANEL Stat LAB 01/16/17 20:02 Completed URINALYSIS C & S IF INDICATED Stat LAB 01/16/17 19:35 Completed Clonidine HCl [Catapres] MEDS 01/16/17 19:49 Discontinued 0.1 mg PO ONCE STA Dexamethasone 4 mg/ml Inj [Decadron 4 mg/ml Sdv] MEDS 01/16/17 19:48 Discontinued 4 mg IM ONCE STA Oxycodone-Acetaminophe 7.5-325 [Percocet 7.5-325] MEDS 01/16/17 19:48 Discontinued 1 tab PO ONCE STA Oxycodone-Acetaminophen 5-325 [Percocet 5-325] MEDS 01/17/17 02:28 Discontinued 1 tab PO ONCE STA CT ABDOMEN/PELVIS WO CONTRAST Stat RADS 01/16/17 19:[address] HEAD W/O CONTRAST Stat RADS 01/16/17 19:[address] LUMBAR SPINE W/O CONTRAST Stat RADS 01/16/17 19:47 Completed Medications Discontinued Medications Generic Name Dose Route Start Last Admin Trade Name Dori PRN Reason Stop Dose Admin Clonidine 0.1 mg 01/16/17 19:49 01/16/17 20:05 Catapres PO 01/16/17 19:50 0.1 mg ONCE STA Administration Dexamethasone Sodium Phosphate 4 mg 01/16/17 19:48 01/16/17 20:03 Decadron 4 Mg/Ml Sdv IM 01/16/17 19:49 4 mg ONCE STA Administration Oxycodone/Acetaminophen 1 tab 01/16/17 19:48 01/16/17 20:04 Percocet 7.5-325 PO 01/16/17 19:49 1 tab ONCE STA Administration Oxycodone/Acetaminophen 1 tab 01/17/17 02:28 01/17/17 02:40 Percocet 5-325 PO 01/17/17 02:29 1 tab ONCE STA Administration Vital Signs: Temp Pulse Resp BP Pulse Ox 01/16/17 19:34 98.0 F 65 20 183/78 H 96 Departure - Departure Time of Disposition: 05:07 Disposition: HOME SELF-CARE Discharge Problem: Chronic back pain Qualifiers: Back pain location: low back pain Back pain laterality: unspecified Sciatica presence: without sciatica Qualifier Code: (M54.5) Low back pain Instructions: Chronic Back Pain (ED) Condition: Stable Pt referred to PMD for follow-up: Yes Additional Instructions: keep appt wtih dr ibrahim today--discuss options including tx for anxiety Allergies/Adverse Reactions: Allergies No Known Allergies Allergy (Verified 01/16/17 19:42) Home Medications: Ambulatory Orders Calcium Carbonate/Vitamin D3 [Calcium 600 + Vit D 400 Tablet] 1 each PO DAILY Lisinopril 20 mg PO DAILY 06/15/13 Multivits-Min/Iron/FA/Lutein [Centrum Silver Women Tablet] 1 tab PO EVERY OTHER DAY 03/20/15 Lactase [Lactaid] 3,000 unit PO BID 12/30/16 Pantoprazole Sodium [Protonix] 40 mg PO DAILY #30 tablet. 01/03/17 Hydrocodone Bit/Acetaminophen [[place] 5-325] 1 - 2 tab PO Q6HR PRN #12 tablet 07/19 Disposition Discussed With: Patient, Family
[2017-01-17] MEDS ORDERED: PERCOCET 5-325 PO STA (02:28)
== END 2017-01-17 06:00 | disposition home or self-care (01) ==
LOC: ED 19:32
DX: M54.5 Low back pain (principal); E78.5 Hyperlipidemia, unspecified; I10 Essential (primary) hypertension; Z79.899 Other long term (current) drug therapy
CPT/HCPCS: 36415; 80053; 81001; 85025; 96372; 99284

== ENCOUNTER 2017-04-01 18:14 | Emergency (ER) | payer OTHER ==
[2017-04-01 18:44] VITALS: BP 177/85; TEMP 98.8; BMI 26.4
--- NOTE | 2017-04-01 19:21 | ED.PDOC ---
General ED Provider: Dr. HARDY ALVAREZ Chief Complaint: Head Injury Stated Complaint: While sweaping the porch, she fell back and hurt the head. Time Seen by Physician: 19:18 Mode of Arrival: Wheelchair Information Source: Patient Primary Care Provider: KARYNA SMITH Nursing and Triage Documentation Reviewed and Agree: Yes Trauma/Injury Complaint Exam - Head Injury Complaint/Exam Location of Pain: Reports: Scalp Mechanism of Injury: Reports: Trauma Symptoms Are: Still present Initial Severity: Mild Current Severity: Mild Character: Reports: Dull Aggravating: Reports: None Alleviating: Reports: None Associated Signs and Symptoms: Denies: Confusion, Memory loss, Seizure, Epistaxis, Dental malocclusion, Neck pain, Nausea, Vomiting Loss of Consciousness: None SDH Risk Factors: Present: None Cervical Spine Injury Risk Factors: Present: None Related Surgical History: Reports: None Head Injury Findings: Present: Normal findings Focal Weakness: Present: None Focal Sensory Loss: Present: None Gait: Normal Gag Reflex Present: Yes Finger to Nose: Normal Differential Diagnoses: Cervical Dislocation, Intracranial Bleed, Sprain Review of Systems - Review Of Systems Constitutional: Reports: No symptoms Eyes: Reports: No symptoms Ears, Nose, Mouth, Throat: Reports: No symptoms Respiratory: Reports: No symptoms Cardiac: Reports: No symptoms GI: Reports: No symptoms : Reports: No symptoms Musculoskeletal: Reports: Neck pain Skin: Reports: No symptoms Neurological: Reports: Headache Endocrine: Reports: No symptoms Hematologic/Lymphatic: Reports: No symptoms All Other Systems: Reviewed and Negative Past Medical History - Past Medical History Previously Healthy: Yes Endocrine: Reports: None, Dyslipidemia (simvastatin) Cardiovascular: Reports: None, Hypertension (lisinopril) Respiratory: Reports: None Hematological: Reports: None Gastrointestinal: Reports: GERD Genitourinary: Reports: None Neuro/Psych: Reports: Anxiety, Depression, Other (antivert) Musculoskeletal: Reports: None Cancer: Reports: None Last Menstrual Period: unknown Other Pertinent Past Medical History: arthritis left knee injections, zanaflex , actonel - Surgical History General Surgical History: Reports: Orthopedic (right hip, ) - Family History Family History: Reports: Unknown - Social History Smoking Status: Never smoker Hx Substance Use: No Alcohol Screening: None - Immunizations Tetanus Shot up to Date: No (more than 5 years) Physical Exam - Physical Exam Appearance: Well-appearing, No pain distress, Well-nourished Eyes: EOMI, Conjunctiva clear ENT: Ears normal, Nose normal, Oropharynx normal Respiratory: Airway patent, Breath sounds clear, Breath sounds equal, Respirations nonlabored Cardiovascular: RRR, Pulses normal, No rub, No murmur GI/: Soft, Nontender, No masses, Bowel sounds normal, No Organomegaly Musculoskeletal: Normal strength, ROM intact, No edema, No calf tenderness Skin: Warm (1 cm scalp laceration.), Dry, Normal color Neurological: Sensation intact, Motor intact, Reflexes intact, Cranial nerves intact, Alert, Oriented Psychiatric: Affect appropriate, Mood appropriate Interpretation - Radiology Interpretation Radiology Interpretation By: Radiologist Radiology Results: Negative Exam Interpreted: CT Scan Critical Care Note - Critical Care Note Total Time (mins): 0 Course - Course Orders, Labs, Meds: Orders Category Date Time Status CT CERVICAL SPINE W/O CONTRAST Stat RADS 04/01/17 19:[address] HEAD W/O CONTRAST Stat RADS 04/01/17 19:16 Completed Vital Signs: Temp Pulse Resp BP Pulse Ox 04/01/17 18:22 98.8 F 64 20 177/85 H 94 L Departure - Departure Time of Disposition: 19:56 Disposition: HOME SELF-CARE Discharge Problem: Head and neck injury Instructions: Fall Prevention for Older Adults (ED) Condition: Good Pt referred to PMD for follow-up: Yes Additional Instructions: fall risk discussed daughter is buying the fall alert Allergies/Adverse Reactions: Allergies No Known Allergies Allergy (Verified 04/01/17 18:38) Home Medications: Ambulatory Orders Calcium Carbonate/Vitamin D3 [Calcium 600 + Vit D 400 Tablet] 1 each PO DAILY Lisinopril 20 mg PO DAILY 06/15/13 Multivits-Min/Iron/FA/Lutein [Centrum Silver Women Tablet] 1 tab PO EVERY OTHER DAY 03/20/15 Lactase [Lactaid] 3,000 unit PO BID 12/30/16 Pantoprazole Sodium [Protonix] 40 mg PO DAILY #30 tablet. 01/03/17 Gabapentin 300 mg PO BID 04/01/17 Disposition Discussed With: Patient, Family
--- NOTE | 2017-04-01 19:50 | CT ---
EXAM: CT brain without contrast HISTORY: Injury TECHNIQUE: Multi-slice sequential. Coronal and sagittal reformations were performed. COMPARISON: 01/16/2017 FINDINGS: No acute intracranial hemorrhage or midline shift is seen. Mass effect at the level of the foramen magnum and C1 is not significantly changed. There is mild diffuse sulcal prominence. Ventricular p rominence is consistent with the degree of parenchymal volume loss. Fairly extensive periventricula r white matter hypodensity is seen. Intracranial atherosclerosis is present. The basal cisterns ar e patent. No large vascular territory area of hypodensity is seen within the brain. The calvarium i s unremarkable. Visualized paranasal sinuses are clear. Mastoid air cells are clear. A small left parietal scalp contusion is present. IMPRESSION: 1. No acute intracranial findings. 2. Similar appearing mass effect at the foramen magnum/C1 level. 3. Age-related changes of mild parenchymal volume loss, small vessel ischemic disease, and intracra nial atherosclerosis. 4. Small left parietal scalp contusion.
--- NOTE | 2017-04-01 19:53 | CT ---
EXAM: CT of the cervical spine without contrast. HISTORY: Injury with pain. PROCEDURE: Contiguous axial CT images of the cervical spine without contrast with coronal and sagit darvin reformats. FINDINGS: There is 0.3 cm anterolisthesis of C7 on T1. There is normal alignment of the other cervic al vertebral bodies and facets. The vertebral body heights are maintained. There is severe disc sp michael narrowing at multiple levels of the cervical spine. There are prominent posterior osteophytes a t multiple levels of the cervical spine resulting in multilevel neural foraminal narrowing. There i s severe multilevel facet arthropathy. The C1-2 relationship is maintained. No prevertebral soft t issue abnormality. Impression: No evidence of fracture. 0.3 cm anterolisthesis of C7 on T1 secondary to facet arthropathy. Multilevel degenerative changes as described. Multilevel neural foraminal narrowing as described.
== END 2017-04-01 20:15 | disposition home or self-care (01) ==
LOC: ED 18:14
DX: S09.90XA Unspecified injury of head, initial encounter (principal); S19.9XXA Unspecified injury of neck, initial encounter; S01.01XA Laceration without foreign body of scalp, initial encounter; W19.XXXA Unspecified fall, initial encounter
CPT/HCPCS: 99283